=== PATIENT | male | born 1965 | race Caucasian/White ===

== ENCOUNTER 2020-02-16 03:11 | Emergency (ER) | payer OTHER ==
[~2020-02-16] VITALS: Ht 167.6 cm; Wt 88.0 kg
[2020-02-16 03:19] VITALS: Ht 167.6 cm; Wt 88.0 kg
[2020-02-16 05:29] VITALS: BP 132/89
== END 2020-02-16 05:29 | disposition home or self-care (01) ==
LOC: ED 03:11
DX: S01.01XA Laceration without foreign body of scalp, initial encounter (principal); W11.XXXA Fall on and from ladder, initial encounter; Y93.89 Activity, other specified; Y92.89 Other specified places as the place of occurrence of the external cause; Y99.8 Other external cause status
CPT/HCPCS: J2001